=== PATIENT | female | born 1995 | race Caucasian/White ===

== ENCOUNTER 2017-03-23 14:29 | Emergency (ER) | payer BC, OTHER ==
[~2017-03-23] VITALS: Ht 162.6 cm; Wt 63.9 kg
[~2017-03-23 14:29] MED LIST: MULT-506 PO
[2017-03-23 14:31] VITALS: TEMP 36.7; Ht 162.6 cm; Wt 63.9 kg
[2017-03-23] MEDS ORDERED: SODIUM CHLORIDE 0.9% 1000ML 2,000 ML IV STA (14:47)
[2017-03-23 15:12] LABS: BASO % 0.5 %; BASO ABS # 0.04 K/uL (0-0.2); COMPLETE YES; EOS % 1.6 %; IG% 0.1 %; LYMPH % 14.6 %; LYMPH ABS # 1.16 K/uL (1.2-3.4); MEAN CELL VOLUME 91.4 fL (80-100); MEAN CORPUSCULAR HGB CONC 32.8 g/dl (32-36); MEAN PLATELET VOLUME 8.8 fL (7.4-10.4); MONO % 4.5 %; NEUT % 78.7 %; PLATELET COUNT 332 K/uL (130-400); RED BLOOD COUNT 5.14 M/uL (4.2-5.4); WHITE BLOOD COUNT 7.96 K/uL (4.8-10.8)
--- NOTE | 2017-03-23 15:22 | DIAGNOSTIC IMAGING REPORT ---
CHEST ONE VIEW PORTABLE CLINICAL HISTORY: Chest Pain dyspnea COMPARISON STUDY: 11/28/2013 FINDINGS: The bones soft tissues and hemidiaphragms are normal. The cardiomediastinal silhouette is normal. The lungs are clear. The pulmonary vasculature is normal. IMPRESSION: Negative chest. Electronically signed by: Aaron Minaya M.D. 03/23/2017 3:21 PM Dictated Date/Time: 03/23/2017 3:21 PM
[2017-03-23] MEDS ORDERED: MECLIZINE HCL 25 MG TAB PO STA (15:25)
[2017-03-23 15:31] LABS: BLOOD UREA NITROGEN 7 mg/dl (7-18); BUN/CREATININE RATIO 7.5 (10-20); CALCIUM 9.2 mg/dl (8.5-10.1); CARBON DIOXIDE 26 mmol/L (21-32); CHLORIDE 105 mmol/L (98-107); CREATININE 0.87 mg/dl (0.60-1.20); GLUCOSE 72 mg/dl (70-99); POTASSIUM 4.2 mmol/L (3.5-5.1); SODIUM 137 mmol/L (136-145)
[2017-03-23 15:35] LABS: CKMB/CK RATIO 1.1 (0-3.0)
[2017-03-23 16:27] LABS: PREG INTERNAL NEGATIVE QC NEG CLEAR BACKGROUND; PREG INTERNAL POSITIVE QC POS CONTROL LINE
--- NOTE | 2017-03-23 16:29 | DIAGNOSTIC IMAGING REPORT ---
HEAD CT NONCONTRAST CT DOSE: 537.48 mGy.cm HISTORY: Trauma CUEVA s/p fall TECHNIQUE: Multiaxial CT images of the head were performed without the use of intravenous contrast. Comparison: None. Findings: The paranasal sinuses and mastoid air cells are clear. The calvarium and skull base are intact. The ventricles and sulci are within normal limits. There is no mass, hematoma, midline shift, or acute infarct. Impression: No acute intracranial abnormality. Electronically signed by: Aaron Minaya M.D. 03/23/2017 4:28 PM Dictated Date/Time: 03/23/2017 4:26 PM
[2017-03-23 16:58] VITALS: BP 118/60; PULSE 91; O2SAT 99
--- NOTE | 2017-03-23 20:17 | EMERGENCY ROOM VISIT NOTE ---
History Report prepared by Ldibchristiano: Nolberto Birch Under the Supervision of: Dr. Raúl Rock D.O. First contact with patient: 14:34 Chief Complaint: DIZZY Stated Complaint: DIZZY, PASSED OUT AT WORK, HOT-WORK RELATED INJ. History of Present Illness The patient is a 21 year old female who presents to the Emergency Room with a resolved episode of syncope that occurred just prior to arrival. 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 Her vision went black and she passed out. The patient was on the floor when she regained consciousness. The patient lost consciousness for what she believes was a few minutes. She reportedly hit her head but does not complain of a headache. The patient is now feeling somewhat dizzy and has trouble focusing. Patient denies headache, fevers, chest pain, shortness of breath, nausea, vomiting, diarrhea, pain with urination, melena, leg swelling, recent surgeries, recent trips, estrogen use, hemoptysis, or weakness or numbness of the extremities. The patient has been sleeping 12-15 hours per day lately which is unusual for her. The patient has not started any new medications recently. She ate and drank today. The patient denies history of blood clots or seizures. She was not convulsing. She is not on control but does smoke. The patient had an on the 1st of this month. Denies any history of diabetes, hypertension, hyperlipidemia, CAD or sudden at a young age. Source of History: patient Onset: just prior to arrival Position: other (global) Quality: other (syncope) Timing: resolved Associated Symptoms: + LOC, No fevers, No headache, No chest pain, No SOB, No nausea, No vomiting, No melena, No diarrhea, No urinary symptoms, No weakness , No numbness Review of Systems See HPI for pertinent positives & negatives. A total of 10 systems reviewed and were otherwise negative. Past Medical & Surgical Medical Problems: (1) Asthma (2) GI bleed Family History FH: cancer Social History Smoking Status: Never Smoker Alcohol Use: none Marital Status: in relationship Housing Status: lives with significant other Occupation Status: unemployed Current/Historical Medications No Active Prescriptions or Reported Meds Allergies Coded Allergies: Amoxicillin (Verified Allergy, Unknown, as a child, 03/23/17) Clavulanic Acid (Verified Allergy, Unknown, ., 03/23/17) Sulfa Drugs (Verified Allergy, Unknown, ., 03/23/17) Physical Exam Vital Signs Date Time Temp Pulse Resp B/P (MAP) Pulse Ox O2 Delivery O2 Flow Rate FiO2 03/23/17 16:58 91 18 118/60 99 Room Air 03/23/17 14:31 36.7 84 20 120/76 97 Room Air Physical Exam GENERAL: Sitting up in bed, alert, well appearing, well nourished, no distress, non-toxic EYE EXAM: normal conjunctiva, PERRL and EOM's intact OROPHARYNX: no exudate, no erythema, lips, buccal mucosa, and tongue normal and mucous membranes are moist NECK: supple, no nuchal rigidity, no adenopathy, non-tender LUNGS: Clear to auscultation. Normal chest wall mechanics HEART: no murmurs, S1 normal and S2 normal ABDOMEN: abdomen soft, non-tender, normo-active bowel sounds, no masses, no rebound or guarding. BACK: Back is symmetrical on inspection and there is no deformity, no midline tenderness, no CVA tenderness. SKIN: no rashes and no bruising UPPER EXTREMITIES: upper extremities are grossly normal. LOWER EXTREMITIES: No pitting edema. NEURO EXAM: Normal sensorium, cranial nerves II-XII intact, normal speech, no weakness of arms, no weakness of legs. No drift. Finger to nose intact. Gross sensation intact. Medical Decision & Procedures ER Provider Diagnostic Interpretation: Radiology results as stated below per my review and the radiologist's interpretation: CHEST ONE VIEW PORTABLE CLINICAL HISTORY: Chest Pain dyspnea COMPARISON STUDY: 11/28/2013 FINDINGS: The bones soft tissues and hemidiaphragms are normal. The cardiomediastinal silhouette is normal. The lungs are clear. The pulmonary vasculature is normal. IMPRESSION: Negative chest. Electronically signed by: Aaron Minaya M.D. 03/23/2017 3:21 PM Dictated Date/Time: 03/23/2017 3:[address] CT DOSE: 537.48 mGy.cm HISTORY: Trauma CUEVA s/p fall TECHNIQUE: Multiaxial CT images of the head were performed without the use of intravenous contrast. Comparison: None. Findings: The paranasal sinuses and mastoid air cells are clear. The calvarium and skull base are intact. The ventricles and sulci are within normal limits. There is no mass, hematoma, midline shift, or acute infarct. Impression: No acute intracranial abnormality. Electronically signed by: Aaron Minaya M.D. 03/23/2017 4:28 PM Dictated Date/Time: 03/23/2017 4:26 PM Laboratory Results 03/23/17 15:04 Red Blood Count 5.14, Mean Corpuscular Volume 91.4, Mean Corpuscular Hemoglobin 30.0, Mean Corpuscular Hemoglobin Concent 32.8, Mean Platelet Volume 8.8, Neutrophils (%) (Auto) 78.7, Lymphocytes (%) (Auto) 14.6, Monocytes (%) (Auto) 4.5, Eosinophils (%) (Auto) 1.6, Basophils (%) (Auto) 0.5, Neutrophils # (Auto) 6.26, Lymphocytes # (Auto) 1.16, Monocytes # (Auto) 0.36, Eosinophils # (Auto) 0.13, Basophils # (Auto) 0.04 03/23/17 15:04 Test 03/23/17 15:04 White Blood Count 7.96 K/uL (4.8-10.8) Red Blood Count 5.14 M/uL (4.2-5.4) Hemoglobin 15.4 g/dL (12.0-16.0) Hematocrit 47.0 % (37-47) Mean Corpuscular Volume 91.4 fL (80-100) Mean Corpuscular Hemoglobin 30.0 pg (25-34) Mean Corpuscular Hemoglobin Concent 32.8 g/dl (32-36) Platelet Count 332 K/uL (130-400) Mean Platelet Volume 8.8 fL (7.4-10.4) Neutrophils (%) (Auto) 78.7 % Lymphocytes (%) (Auto) 14.6 % Monocytes (%) (Auto) 4.5 % Eosinophils (%) (Auto) 1.6 % Basophils (%) (Auto) 0.5 % Neutrophils # (Auto) 6.26 K/uL (1.4-6.5) Lymphocytes # (Auto) 1.16 K/uL (1.2-3.4) Monocytes # (Auto) 0.36 K/uL (0.11-0.59) Eosinophils # (Auto) 0.13 K/uL (0-0.5) Basophils # (Auto) 0.04 K/uL (0-0.2) RDW Standard Deviation 42.0 fL (36.4-46.3) RDW Coefficient of Variation 12.5 % (11.5-14.5) Immature Granulocyte % (Auto) 0.1 % Immature Granulocyte # (Auto) 0.01 K/uL (0.00-0.02) D-Dimer < 190 ug/L FEU (0-500) Anion Gap 6.0 mmol/L (3-11) Est Creatinine Clear Calc Drug Dose 88.4 ml/min Estimated GFR () 110.4 Estimated GFR (Non- 95.2 BUN/Creatinine Ratio 7.5 (10-20) Calcium Level 9.2 mg/dl (8.5-10.1) Total Creatine Kinase 191 U/L (26-192) Creatine Kinase MB 2.1 ng/ml (0.5-3.6) Creatine Kinase MB Ratio 1.1 (0-3.0) Troponin I < 0.015 ng/ml (0-0.045) Human Chorionic Gonadotropin, Qual NEG (NEG) Laboratory results per my review. Medications Administered Medications (Trade) Dose Ordered Sig/Juice Route Start Time Stop Time Status Last Admin Dose Admin Sodium Chloride 2,000 ml @ 999 mls/hr Q2H1M STAT IV 03/23/17 14:47 03/23/17 16:47 DC 03/23/17 15:05 999 MLS/HR Meclizine HCl (Antivert Tab) 25 mg NOW STAT PO 03/23/17 15:25 03/23/17 15:26 DC 03/23/17 15:29 25 MG ECG Indication: syncope Rate (beats per minute): 67 Rhythm: normal sinus Findings: no ectopy, other (normal axis) ED Course ED COURSE: Vital signs were reviewed and were normal. The patients medical record was reviewed The above diagnostic studies were performed and reviewed. ED treatments and interventions as stated above. 1438: The patient was evaluated in room B12b. A complete history and physical examination was performed. 1447: NSS 2000 ml @ 999 mls/hr. 1525: Meclizine 25 mg PO. 1553: The patient is feeling better but does still feel "a little off." 1700: Upon reevaluation, the patient is doing well.I discussed my findings with the patient and she understands and agrees with the treatment plan. Based on the patients age, coexisting illnesses, exam and lab findings the decision to treat as an outpatient was made. The patient remained stable while under my care. The patient appeared well at the time of discharge. Medical Decision Differential diagnosis includes etiologies such as benign positional vertigo, dehydration, hypovolemia, anemia, tumor, infection, hypoglycemia, electrolyte abnormalities, cardiac sources, intracerebral event, toxicologic, neurologic, as well as others were entertained. Blood pressure screening: Patient was found to have normal blood pressure on screening and does not require follow-up. Medication Reconciliation: I attest that I have personally reviewed the patient' s current medication list. Patient is a 21-year-old female who presents the ER for syncopal event. She was in the kitchen at work and felt very hot. Patient had a chest pain or shortness of breath. She is no PE or cardiac risk factors with the exception of smoking. Neurologic exam is completely intact. CT head was negative. EKG was negative. Chest x-ray was unremarkable. Troponin and d-dimer were negative. She is not anemic. Blood sugar was normal. Patient was updated regards to findings per she is given fluids and Antivert. She felt slightly better. She is discharged not to drive follow-up with her primary care doctor in 24 hours. I do favor based on history this is likely vasovagal in nature. Discussed with Pt concerning signs and symptoms to watch out for. Pt was instructed to follow up with their PCP and discussed with the patient their option to return to the ED at anytime for persistent or worsening symptoms. The appropriate anticipatory guidance and out-patient management, including indications for return to the emergency department, were explained at length to the patient and understood. Impression Primary Impression: Syncope Scribe Attestation The scribe's documentation has been prepared under my direction and personally reviewed by me in its entirety. I confirm that the note above accurately reflects all work, treatment, procedures, and medical decision making performed by me. Departure Information Dispostion Home / Self-Care Prescriptions No Active Prescriptions or Reported Meds Referrals No Doctor, Assigned (PCP) Forms HOME CARE DOCUMENTATION FORM, IMPORTANT VISIT INFORMATION Patient Instructions My [facility], Syncope Causes, Syncope Dx Additional Instructions Please follow up with your primary care doctor with in the next 24 hours. Any worsening of your symptoms, please return to the ED immediately. This includes passing out, chest pain, shortness of breath, weakness or numbness in arms or legs, or any other concerning signs or symptoms from your standpoint. No driving for the next 24 hours. Problem Qualifiers Primary Impression: Syncope Syncope type: unspecified Qualified Codes: R55 - Syncope and collapse
== END 2017-03-23 17:07 | disposition home or self-care (01) ==
LOC: C.EDB 14:30
DX: R55 Syncope and collapse (principal); J45.909 Unspecified asthma, uncomplicated

== ENCOUNTER 2017-06-16 23:04 | Emergency (ER) | payer BC, OTHER ==
[~2017-06-16] VITALS: Ht 162.6 cm; Wt 64.3 kg
[2017-06-16 23:30] VITALS: TEMP 36.7; Ht 162.6 cm; Wt 64.3 kg
[2017-06-17] MEDS ORDERED: ALBUT/IPRATROP 3MG/0.5MG NEB 3 ML VIAL INH STA (00:28)
[2017-06-17] MEDS ORDERED: METH4PAK PO (01:59)
[2017-06-17] MEDS ORDERED: AZITTAB PO (01:59)
[2017-06-17] MEDS ORDERED: ALBUTEROL HFA 8 GM INHALER INH ONE (02:00)
[2017-06-17] MEDS ORDERED: AZITHROMYCIN 250 MG TAB PO ONE (02:00)
--- NOTE | 2017-06-17 02:00 | EMERGENCY ROOM VISIT NOTE ---
History First contact with patient: 00:11 Chief Complaint: RESPIRATORY PROBLEMS Stated Complaint: TIGHT CHEST, COUGH, PROBLEMS BREATHING Nursing Triage Summary: see triage note History of Present Illness The patient is a 21 year old female who presents to the Emergency Room with complaints of chest tightness and difficulty breathing. The patient states that she has had a cough and tightness across the front of her chest for the past 3 days. She has had symptoms like this in the past and has taken over-the- counter medications with relief. The patient states that she took Robitussin without relief. She rates her overall discomfort a 6/10. She denies any history of asthma. She does smoke. She denies any fevers/chills, sore throat, earaches, nausea or vomiting. Review of Systems A complete 10 point review of systems was reviewed with the patient with pertinent positives and negatives as per history of present illness. All else were negative. Past Medical/Surgical History Medical Problems: (1) Asthma (2) GI bleed Family History FH: cancer Social History Smoking Status: Current Every Day Smoker Alcohol Use: none Marital Status: in relationship Housing Status: lives with significant other Occupation Status: unemployed Current/Historical Medications Scheduled Azithromycin (Zithromax Z-Osei), 0 PO UD Methylprednisolone (Medrol Dosepak), 0 PO DAILY Physical Exam Vital Signs Date Time Temp Pulse Resp B/P (MAP) Pulse Ox O2 Delivery O2 Flow Rate FiO2 06/17/17 02:04 75 16 112/73 99 Room Air 06/16/17 23:30 36.7 79 20 128/83 99 Room Air Physical Exam VITALS: Vitals are noted on the nurse's note and reviewed by myself. Vital signs stable. GENERAL: This is a 21-year-old female, in no acute distress, nondiaphoretic, well-developed well-nourished. SKIN: The skin was without rashes. EARS: External auditory canals clear, tympanic membranes pearly downey without erythema or effusion bilaterally. EYES: Pupils equal round and reactive to light and accommodation. Conjunctivae without injection, sclerae without icterus. NOSE: Patent, turbinates without inflammation or discharge. MOUTH: Mucous membranes moist. Tonsils are not enlarged. Pharynx without erythema or exudate. NECK: Supple without nuchal rigidity. No lymphadenopathy. HEART: Regular rate and rhythm without murmurs gallops or rubs. LUNGS: Expiratory wheezes throughout all lung bryant. No retractions or accessory muscle use. NEURO: Patient was alert and oriented to person place and time. Medical Decision & Procedures ER Provider Diagnostic Interpretation: CHEST X-RAY: No acute cardiopulmonary findings. Medications Administered Medications (Trade) Dose Ordered Sig/Juice Route Start Time Stop Time Status Last Admin Dose Admin Albuterol/ Ipratropium (Duoneb) 3 ml NOW STAT INH 06/17/17 00:28 06/17/17 00:30 DC 06/17/17 00:38 3 ML Azithromycin (Zithromax Tab) 500 mg NOW ONCE PO 06/17/17 02:00 06/17/17 02:01 DC 06/17/17 02:03 500 MG Albuterol (Ventolin Hfa Inhaler) 2 puffs NOW ONCE INH 06/17/17 02:00 06/17/17 02:01 DC 06/17/17 02:03 2 PUFFS ED Course The patient was evaluated as above. Labs were drawn and IV access was obtained. Patient was medicated with a DuoNeb treatment. Patient was reevaluated and felt better. Her lung exam was improved on repeat examination. Discharge instructions were reviewed with the patient. The patient verbalized understanding of my assessment and treatment plan and was discharged home in good condition. Medical Decision Differential diagnosis includes pneumonia, bronchitis, asthma exacerbation, among others. The patient is a 21-year-old female who presents today complaining of coughing and shortness of breath. Chest x-ray was reviewed by myself and showed no evidence of pneumonia. The patient was given a DuoNeb treatment with some relief. She will be treated for acute bronchitis with a Z-Osei and Medrol Dosepak. She was given a Ventolin inhaler to use at home. Based on the patient's presentation and work up, I feel the patient is stable for outpatient treatment. The patient was educated to return to the emergency department for any worsening of their current condition or new/concerning symptoms. She will follow up with her PCP. Medication Reconcilliation Current Medication List: was personally reviewed by me Blood Pressure Screening Patient's blood pressure: Normal blood pressure Impression Primary Impression: Acute bronchitis Departure Information Dispostion Home / Self-Care Condition GOOD Prescriptions Azithromycin (ZITHROMAX Z-OSEI) 250 Mg Tab 0 PO UD, #1 PKT 2 TABS DAY 1, THEN 1 TAB DAILY FOR 4 DAYS Prov: Le, Lata ., PA-C 06/17/17 Methylprednisolone (MEDROL DOSEPAK) 4 Mg Osei 0 PO DAILY, #1 PKT Prov: Lata Le PA-C 06/17/17 Referrals Elizabeth Marrufo DO (PCP) Patient Instructions My [facility] Additional Instructions You were prescribed Zithromax to be taken as prescribed. This is an antibiotic. All antibiotics have the potential to cause diarrhea. Stop this medication and contact a medical provider if you were to develop any significant adverse side effects including: wheezing, shortness of breath, passing out, vomiting, or a diffuse rash. Always take antibiotics as directed and COMPLETE the ENTIRE course regardless of the improvement of your symptoms. You have been prescribed a Medrol Dosepak. This is a steroid which will help decrease your inflammation, redness, and itch. Take the medicine as prescribed. Take the ENTIRE 6 day course of the steroids. For pain control, you can use the following [id number] medicines (if >12 yo): - Regular strength (325mg/tab) Tylenol (acetaminophen) 2 tabs every 4-6 hours as needed. Do not exceed 12 tablets in a 24 hour period. Avoid taking more than 4 grams (4000 mg) of Tylenol per day. This includes any other sources of acetaminophen you may take on a regular basis. - Regular strength (200 mg/tab) Advil (ibuprofen) 1-2 tabs every 4-6 hours as needed. Do not exceed a dose of 3200 mg per day. Use the inhaler as needed for cough/shortness of breath. Follow-up with her primary care provider within 48 hours for a recheck. Return to the emergency department with worsening shortness of breath, high fever or any other new/concerning symptoms. Problem Qualifiers Primary Impression: Acute bronchitis Bronchitis organism: unspecified organism Qualified Codes: J20.9 - Acute bronchitis, unspecified
[2017-06-17 02:04] VITALS: BP 112/73; PULSE 75; O2SAT 99
--- NOTE | 2017-06-17 06:56 | DIAGNOSTIC IMAGING REPORT ---
CHEST 2 VIEWS ROUTINE CLINICAL HISTORY: COUGH, CHEST TIGHTNESS. COMPARISON STUDY: Chest radiograph March 23, 2017. FINDINGS: The lung volumes are normal. No consolidation is identified. Pulmonary vascularity is normal. No pneumothorax or pleural effusion is identified. Cardiomediastinal silhouette is normal. IMPRESSION: No acute cardiopulmonary findings. Electronically signed by: Aden Raymundo M.D. 06/17/2017 6:55 AM Dictated Date/Time: 06/17/2017 6:54 AM
== END 2017-06-17 02:11 | disposition home or self-care (01) ==
LOC: C.EDB 23:05
DX: J20.9 Acute bronchitis, unspecified (principal); J45.909 Unspecified asthma, uncomplicated; F17.200 Nicotine dependence, unspecified, uncomplicated

== ENCOUNTER 2017-09-28 20:39 | Emergency (ER) | payer BC ==
[~2017-09-28] VITALS: Ht 162.6 cm; Wt 65.9 kg
[2017-09-28 20:44] VITALS: TEMP 36.5; Ht 162.6 cm; Wt 65.9 kg
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
[2017-09-28 21:37] VITALS: BP 122/69; PULSE 68; O2SAT 98
== END 2017-09-28 21:32 | disposition home or self-care (01) ==
LOC: C.EDB 20:41 → C.EDD 21:32
DX: S06.0X0A Concussion without loss of consciousness, initial encounter (principal); W20.8XXA Other cause of strike by thrown, projected or falling object, initial encounter; Y92.9 Unspecified place or not applicable; H65.03 Acute serous otitis media, bilateral; J45.909 Unspecified asthma, uncomplicated; Z80.9 Family history of malignant neoplasm, unspecified; F17.210 Nicotine dependence, cigarettes, uncomplicated

== ENCOUNTER 2018-02-09 11:42 | Emergency (ER) | payer OTHER, BC ==
[~2018-02-09] VITALS: Ht 162.6 cm; Wt 64.5 kg
[2018-02-09 11:50] VITALS: TEMP 36.6; Ht 162.6 cm; Wt 64.5 kg
[2018-02-09] MEDS: LIDOCAINE 1% BUFFERED INJ 5 ML VIAL INFIL ONE ×2 (12:12→12:15)
[2018-02-09] MEDS ORDERED: DIPHTHERIA/TETANUS/PERTUSSIS 0.5 ML SYR/VIAL IM. ONE (12:15)
[2018-02-09 12:57] VITALS: BP 122/78; PULSE 62; O2SAT 99
--- NOTE | 2018-02-09 15:56 | EMERGENCY ROOM VISIT NOTE ---
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 The patient denies any significant bleeding, and rates her discomfort a 3 out of 10. Patient is uncertain of her last tetanus immunization. The patient is right-hand dominant. Review of Systems 10 system review was performed and was negative except for pertinent positives and negatives as indicated in history of present illness Past Medical/Surgical History Medical Problems: (1) Asthma (2) GI bleed Family History FH: cancer Social History Smoking Status: Current Every Day Smoker Alcohol Use: none Marital Status: in relationship Housing Status: lives with significant other Occupation Status: unemployed Current/Historical Medications No Active Prescriptions or Reported Meds Physical Exam Vital Signs Date Time Temp Pulse Resp B/P (MAP) Pulse Ox O2 Delivery O2 Flow Rate FiO2 02/09/18 12:57 62 16 122/78 99 02/09/18 11:50 36.6 66 16 126/86 98 Room Air Physical Exam CONSTITUTIONAL: Healthy and well nourished. Alert and oriented X 3 with positive affect. HEENT: Normocephalic, atraumatic. Pupils equal, round and reactive. MUSCULOSKELETAL: Examination of the right third fingertip shows a flap laceration measuring 1 cm in repairable length. The laceration does not involve the nail plate. No active bleeding noted. Capillary refill is less than 2 seconds. INTEGUMENTARY: No rash or other significant dermatologic conditions noted. NEUROLOGIC: No focal neurologic deficits noted. Left third fingertip is sensory intact. Medical Decision & Procedures Medications Administered Medications (Trade) Dose Ordered Sig/Juice Route Start Time Stop Time Status Last Admin Dose Admin Diphtheria/ Pertussis/Tetanus Vacc (Adacel Inj) 0.5 ml ONCE ONCE IM. 02/09/18 12:15 02/09/18 12:16 DC 02/09/18 12:13 0.5 ML Procedure Laceration repair was performed under digital block anesthesia after receiving verbal consent from the patient. Using buffered 1% lidocaine without epinephrine, good digital block anesthesia was administered. The wound was then peripherally cleansed with iodine, then irrigated with normal saline. The wound was explored to show no underlying debris. The wound was then approximated using 5-0 nylon simple interrupted sutures. A bacitracin dressing was applied. The patient was administered Adacel IM. ED Course Patient history and physical exam were performed. Nurse's notes were reviewed. Vital signs were reviewed and were normal. Laceration repair was performed under digital block anesthesia. Adacel was administered IM. The patient was provided additional verbal and written wound care instructions. Ice and elevation for swelling. Ibuprofen or Tylenol if needed for additional pain relief. Suture removal in 12-14 days, or seek reevaluation sooner for any signs of wound infection. The patient was happy with plan of care, voiced understanding of all discharge instructions, and denied any pain at the time of discharge. Medical Decision Medication Reconcilliation Current Medication List: was personally reviewed by me Blood Pressure Screening Patient's blood pressure: Normal blood pressure Impression Primary Impression: Laceration of left middle finger Additional Impression: Work related injury Departure Information Dispostion Home / Self-Care Condition GOOD Prescriptions No Active Prescriptions or Reported Meds Forms HOME CARE DOCUMENTATION FORM, Work Instructions, IMPORTANT VISIT INFORMATION Patient Instructions [facility] Additional Instructions Keep wound clean and dry. Do not allow any crusting or dried blood to accumulate on sutures. If this occurs, use a 1:1 solution of hydrogen peroxide/ water on a Q-tip to clean the wound. Use an antibiotic ointment for 3-4 days, then let wound dry. Suture removal in 12-14 days. Return sooner for any signs of infection (increasing redness, swelling, drainage). Ice and elevate for swelling and pain. Ibuprofen 600 mg and Tylenol 1000 mg every 6 hrs as needed for pain. Problem Qualifiers Primary Impression: Laceration of left middle finger Encounter type: initial encounter Damage to nail status: without damage Foreign body presence: without foreign body Qualified Codes: S61.213A - Laceration without foreign body of left middle finger without damage to nail, initial encounter
== END 2018-02-09 12:57 | disposition home or self-care (01) ==
LOC: C.EDB 11:44 → C.EDD 12:57
DX: S61.213A Laceration without foreign body of left middle finger without damage to nail, initial encounter (principal); W26.0XXA Contact with knife, initial encounter; Y92.190 Kitchen in other specified residential institution as the place of occurrence of the external cause; Y93.G1 Activity, food preparation and clean up; Y99.0 Civilian activity done for income or pay; J45.909 Unspecified asthma, uncomplicated; F17.200 Nicotine dependence, unspecified, uncomplicated; Z23 Encounter for immunization

== ENCOUNTER 2018-04-27 17:03 | Emergency (ER) | payer BC, OTHER ==
[~2018-04-27] VITALS: Ht 162.6 cm; Wt 65.5 kg
[2018-04-27 17:14] VITALS: BP 134/75; PULSE 81; TEMP 36.7; O2SAT 100; Ht 162.6 cm; Wt 65.5 kg
--- NOTE | 2018-04-28 01:03 | EMERGENCY ROOM VISIT NOTE ---
History First contact with patient: 17:18 Chief Complaint: RASH Stated Complaint: RASH, SWELLING, ITCHING History of Present Illness The patient is a 22 year old female who presents to the Emergency Room with complaints of hives to her left face and left lower abdomen. The patient reports that she started to develop hives on the left forehead on Tuesday evening. By Tuesday, she started to notice some swelling, and develop of a new rash on the left lower abdomen at the belt line. She reports that she also had a mild rash on the left leg that has resolved. She reports that the rash is itchy. She denies any recent trauma or wounds to the skin. She denies any significant discomfort when pushing over the region. She denies any known insect bites. She has not used any new topical products, and denies any recent unusual foods. She denies pain, headache or abdominal pain. Review of Systems 10 system review was performed and was negative except for pertinent positives and negatives as indicated in history of present illness Past Medical/Surgical History Medical Problems: (1) Asthma (2) GI bleed Family History FH: cancer Social History Smoking Status: Current Every Day Smoker Alcohol Use: occasionally Marital Status: in relationship Housing Status: lives with significant other Occupation Status: employed Current/Historical Medications No Active Prescriptions or Reported Meds Physical Exam Vital Signs Date Time Temp Pulse Resp B/P (MAP) Pulse Ox O2 Delivery O2 Flow Rate FiO2 04/27/18 17:14 36.7 81 18 134/75 100 Room Air Physical Exam CONSTITUTIONAL: Healthy and well nourished. Alert and oriented X 3 with positive affect. Patient does not appear in any acute distress. HEENT: Pupils equal, round and reactive. No scleral icterus or conjunctival injection/pallor. No subconjunctival hemorrhage, epistaxis, hemotympanum, raccoon's eyes or mujica sign. NECK: Full active range of motion without discomfort. No nuchal rigidity. OROPHARYNX: No tonsillar hypertrophy or exudates. LYMPHATICS: No preauricular or cervical chain adenopathy. RESPIRATORY: Clear to auscultation bilaterally with no wheezing, crackles, rhonchi or stridor. CARDIOVASCULAR: Regular rate and rhythm with no murmurs, rubs or gallops. GASTROINTESTINAL: Bowel sounds present in all quadrants. Soft and nontender to palpation. MUSCULOSKELETAL: Full range of motion of all joints without discomfort. INTEGUMENTARY: Examination of the left lateral forehead shows a raised erythematous rash without evidence for pustules, vesicles, desquamation or bullae. The rash does jayme with pressure. Examination of the left anterolateral abdomen at the belt line again shows a similar appearing rash that is mildly elevated and blanches with pressure. NEUROLOGIC: No focal neurologic deficits noted. Medical Decision & Procedures ED Course Patient history and physical exam were performed. Nurse's notes were reviewed. Vital signs were reviewed and were normal. History and clinical exam findings are consistent with an allergic reaction/urticaria. Because the rashes do jayme with pressure, I suspect a histamine reaction. The patient was encouraged to intermittently apply ice to the areas. She may also take Benadryl as needed for itch control. She reports that Benadryl makes her irritable. She was advised to take other antihistamines as needed for relief. She was encouraged to avoid hot showers and heat. She was instructed to return to the emergency department for progressively worsening redness, swelling, pain , developing lesions or fever. The patient was happy with plan of care, and voiced understanding of all discharge instructions. Medical Decision See previous section Medication Reconcilliation Current Medication List: was personally reviewed by me Blood Pressure Screening Patient's blood pressure: Normal blood pressure Impression Primary Impression: Hives Departure Information Dispostion Home / Self-Care Condition FAIR Prescriptions No Active Prescriptions or Reported Meds Forms HOME CARE DOCUMENTATION FORM, IMPORTANT VISIT INFORMATION Patient Instructions [facility], ED [facility] Additional Instructions Intermittently apply ice to the rash. Suggest taking Benadryl 25-50 mg every 6-8 hours. Take other antihistamines such as Claritin, Lula and Zantac 150 mg twice daily. Avoid heat and hot showers. Return to the emergency department for any spreading rash or worsening redness, swelling, pain of the left forehead region. Follow-up with your family doctor if the rash is not improving by Tuesday.
== END 2018-04-27 17:40 | disposition home or self-care (01) ==
LOC: C.EDB 17:03
DX: L50.9 Urticaria, unspecified (principal); J45.909 Unspecified asthma, uncomplicated; F17.200 Nicotine dependence, unspecified, uncomplicated

== ENCOUNTER 2018-05-23 16:52 | Emergency (ER) | payer BC ==
[~2018-05-23] VITALS: Ht 162.6 cm; Wt 65.9 kg
[2018-05-23 16:56] VITALS: TEMP 37.2; Ht 162.6 cm; Wt 65.9 kg
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
[2018-05-23] MEDS ORDERED: IBUPROFEN 600 MG TAB PO STA (18:10)
[2018-05-23 18:17] VITALS: BP 139/80; PULSE 107; O2SAT 98
== END 2018-05-23 18:21 | disposition home or self-care (01) ==
LOC: C.EDB 16:54 → C.EDC 18:21
DX: M54.5 Low back pain (principal); V47.5XXA Car driver injured in collision with fixed or stationary object in traffic accident, initial encounter; Y99.8 Other external cause status; F17.200 Nicotine dependence, unspecified, uncomplicated; Z88.1 Allergy status to other antibiotic agents; Z88.2 Allergy status to sulfonamides